=== PATIENT | female | born 1955 | race Caucasian/White ===

== ENCOUNTER 2016-11-06 17:02 | Observation (INO) | payer OTHER ==
[2016-11-06] VITALS (8 sets, daily range): BP systolic 98–131; BP diastolic 46–61; PULSE 54–61; RESP 16–20; TEMP 97.7–98.3; O2SAT 95–100
[~2016-11-06] VITALS: Ht 165.1 cm; Wt 66.0 kg
[~2016-11-06 17:02] MED LIST: ATEN1TAB74 PO; CALC600T34 PO; ESTR1TAB PO; GLUC500C3 PO; LANO0.2510 PO; MAGN30TA PO; PARO40TA PO; PRAV20TA67 PO; TAB-TAB PO
[2016-11-06] MEDS ORDERED: DIGO0.25 PO (17:07)
[2016-11-06] MEDS ORDERED: ATEN1TAB74 PO (17:07)
[2016-11-06] MEDS ORDERED: ESTR0.5T PO (17:07)
[2016-11-06] MEDS ORDERED: PRAV80TA2 PO (17:07)
[2016-11-06] MEDS ORDERED: PAXI30TA7 PO (17:07)
[2016-11-06] MEDS ORDERED: ONDANSETRON HCL 4 MG/2 ML VIAL IV PUSH ONE ×2 (17:15→21:30)
[2016-11-06] MEDS ORDERED: SODIUM CHLOR 0.9% 1000 ML INJ 1,000 ML IV ONE (17:15)
[2016-11-06] MEDS ORDERED: MECLIZINE HCL 25 MG TAB PO ONE (17:15)
--- NOTE | 2016-11-06 17:15 | PD ---
HPI Chief Complaint: Dizziness Time Seen by Provider: 17:06 Travel History International Travel<30 days: No Contact w/Intl Traveler<30days: No Traveled to known affect area: No History of Present Illness HPI This 61-year-old female is complaining of vertigo. She has had some very brief episodes of vertigo which lasted a second or 2 over the last couple weeks. She did have an upper respiratory infection 2 weeks ago. Today around 3:30 she had a sudden onset of vertigo. She had nausea and she vomited. She has not been taking any medication for vertigo. He does not have any fevers. She is not having a headache. There is no diplopia or dysphagia. She has no numbness or tingling. She does have intermittent problems with wax buildup in her ears. She has a history of SVT for which she takes atenolol and digoxin. She uses CPAP at night. She has TMJ. The vertigo is ongoing and is quite severe. It is aggravated by any movement of the head. There is no tinnitus PFSH Past Medical History Anxiety: Yes Heart Rhythm Problems: Yes ("SVT") High Cholesterol: Yes Diminished Hearing: No ?: Not Menopausal: Yes : 1 Para: 1 Miscarriage: 0 : 0 Tubal Ligation: Yes Past Surgical History Hysterectomy: Yes Tonsillectomy: Yes Other Surgery: Yes (RHINOPLASTY) Social History Alcohol Use: Yes ("a glass of wine once a month") Tobacco Use: No Substance Use: No Allergies-Medications (Allergen,Severity, Reaction): Coded Allergies: Sulfa (Sulfonamide Antibiotics) (Unverified Allergy, Severe, Hives, 11/06/16 ) Reported Meds & Prescriptions Reported Meds & Active Scripts Active Reported Estradiol 0.5 Mg Tab 0.5 Mg PO DAILY Pravastatin 80 Mg Tab 80 Mg PO HS Paxil (Paroxetine HCl) 30 Mg Tab 30 Mg PO DAILY Digoxin 0.25 Mg Tab 0.25 Mg PO HS Tenormin (Atenolol) 50 Mg Tab 50 Mg PO HS Review of Systems General / Constitutional: No: Fever, Chills Eyes: No: Diploplia HENT: No: Headaches Cardiovascular: No: Chest Pain or Discomfort, Palpitations Respiratory: No: Cough, Shortness of Breath Gastrointestinal: Positive: Nausea, Vomiting, No: Diarrhea Genitourinary: No: Urgency, Frequency Musculoskeletal: No: Myalgias Skin: No Rash Neurologic: Positive: Dizziness, No: Syncope Endocrine: No: Heat Intolerance Hematologic/Lymphatic: No: Easy Bruising Physical Exam Narrative GENERAL: Well-developed female complaining of vertigo SKIN: Focused skin assessment warm/dry. HEAD: Atraumatic. Normocephalic. EYES: Pupils equal and round. No scleral icterus. No injection or drainage. There is nystagmus on rightward gaze ENT: No nasal bleeding or discharge. Mucous membranes pink and moist. NECK: Trachea midline. No JVD. CARDIOVASCULAR: Regular rate and rhythm. No murmur appreciated. RESPIRATORY: No accessory muscle use. Clear to auscultation. Breath sounds equal bilaterally. GASTROINTESTINAL: Abdomen soft, non-tender, nondistended. Hepatic and splenic margins not palpable. MUSCULOSKELETAL: No obvious deformities. No clubbing. No cyanosis. No edema. NEUROLOGICAL: Awake and alert. No obvious cranial nerve deficits. Motor grossly within normal limits. Normal speech. PSYCHIATRIC: Appropriate mood and affect; insight and judgment normal. Data Data Last Documented VS Vital Signs Date Time Temp Pulse Resp B/P (MAP) Pulse Ox O2 Delivery O2 Flow Rate FiO2 11/06/16 20:35 56 17 104/53 (70) 99 Nasal Cannula 2.00 11/06/16 19:00 98.1 Orders Orders Electrocardiogram (11/06/16 17:06) Complete Blood Count With Diff (11/06/16 17:06) Basic Metabolic Panel (Bmp) (11/06/16 17:06) Digoxin (11/06/16 17:06) Sodium Chlor 0.9% 1000 Ml Inj (Ns 1000 M (11/06/16 17:15) Ondansetron Inj (Zofran Inj) (11/06/16 17:15) Meclizine (Antivert) (11/06/16 17:15) Lorazepam Inj (Ativan Inj) (11/06/16 18:15) Mri Brain W/O Contrast (11/06/16 18:12) Sodium Chlor 0.9% 1000 Ml Inj (Ns 1000 M (11/06/16 18:15) Labs Laboratory Tests Test 11/06/16 17:10 White Blood Count 6.9 TH/MM3 Red Blood Count 4.56 MIL/MM3 Hemoglobin 13.0 GM/DL Hematocrit 38.1 % Mean Corpuscular Volume 83.6 FL Mean Corpuscular Hemoglobin 28.5 PG Mean Corpuscular Hemoglobin Concent 34.2 % Red Cell Distribution Width 12.3 % Platelet Count 161 TH/MM3 Mean Platelet Volume 9.8 FL Neutrophils (%) (Auto) 63.0 % Lymphocytes (%) (Auto) 27.6 % Monocytes (%) (Auto) 6.1 % Eosinophils (%) (Auto) 2.2 % Basophils (%) (Auto) 1.1 % Neutrophils # (Auto) 4.2 TH/MM3 Lymphocytes # (Auto) 1.9 TH/MM3 Monocytes # (Auto) 0.4 TH/MM3 Eosinophils # (Auto) 0.2 TH/MM3 Basophils # (Auto) 0.1 TH/MM3 CBC Comment DIFF FINAL Differential Comment Blood Urea Nitrogen 14 MG/DL Creatinine 0.77 MG/DL Random Glucose 96 MG/DL Calcium Level 8.4 MG/DL Sodium Level 137 MEQ/L Potassium Level 3.5 MEQ/L Chloride Level 103 MEQ/L Carbon Dioxide Level 27.8 MEQ/L Anion Gap 6 MEQ/L Estimat Glomerular Filtration Rate 76 ML/MIN Digoxin Level 0.7 NG/ML [facility] Medical Decision Making Medical Screen Exam Complete: Yes Emergency Medical Condition: Yes Medical Record Reviewed: Yes Differential Diagnosis Differential includes BPPV, labyrinthitis, Narrative Course Patient is having prolonged vertigo which would not be consistent with BPPV more consistent with labyrinthitis. Patient was given IV fluids, Zofran and Antivert. There is no improvement in her vertigo. MRI was ordered and has been read as negative. Impression is acute peripheral vertigo probable labyrinthitis Diagnosis Primary Impression: Labyrinthitis Qualified Codes: H83.09 - Labyrinthitis, unspecified ear Scripts Meclizine (Meclizine) 25 Mg Tab 25 MG PO TID Y for VERTIGO, #20 TAB 0 Refills Prov: Tutu Owens MD 11/06/16 Disposition: 01 DISCHARGE HOME Condition: Stable Tutu Owens MD Nov 06, 2016 17:15
[2016-11-06 17:29] LABS: AUTOMATED NEUTROPHIL # 4.2 TH/MM3 (1.8-7.7); BASOPHIL # 0.1 TH/MM3 (0-0.2); BASOPHIL % 1.1 % (0.0-2.0); EOSINOPHIL # 0.2 TH/MM3 (0-0.4); EOSINOPHIL % 2.2 % (0.0-4.0); HEMATOCRIT 38.1 % (35.0-46.0); HEMO FLAGS DIFF FINAL; LYMPH % 27.6 % (9.0-44.0); LYMPHOCYTE # 1.9 TH/MM3 (1.0-4.8); MEAN CELL VOLUME 83.6 FL (80.0-100.0); MEAN CORPUSCULAR HEMOGLOBIN 28.5 PG (27.0-34.0); MEAN CORPUSCULAR HGB CONC 34.2 % (32.0-36.0); MONO % 6.1 % (0.0-8.0); PLATELET COUNT 161 TH/MM3 (150-450); RED BLOOD COUNT 4.56 MIL/MM3 (4.00-5.30); RED CELL DISTRIBUTION WIDTH 12.3 % (11.6-17.2); WHITE BLOOD COUNT 6.9 TH/MM3 (4.0-11.0)
[2016-11-06 17:39] LABS: POTASSIUM 3.5 MEQ/L (3.5-5.1)
[2016-11-06 17:42] LABS: BICARBONATE 27.8 MEQ/L (21.0-32.0)
[2016-11-06] MEDS ORDERED: LORazepam 2 MG/ML VIAL IV PUSH ONE ×2 (18:15→21:45)
[2016-11-06] MEDS: SODIUM CHLOR 0.9% 1000 ML INJ 1,000 ML IV SCH ×4 (18:17→23:14)
[2016-11-06 18:24] LABS: DIGOXIN 0.7 NG/ML (0.8-2.0)
--- NOTE | 2016-11-06 20:47 | RADRPT ---
EXAM DATE/TIME: 11/06/2016 20:12 [place] COMPARISON: No previous studies available for comparison. INDICATIONS : Dizziness. MEDICAL HISTORY : None. SURGICAL HISTORY : Tonsillectomy. Tubal ligation. ENCOUNTER: Initial ACUITY: 1 day PAIN SCORE: 0/10 LOCATION: cranial TECHNIQUE: Multiplanar, multisequence MRI of the brain was performed without contrast. FINDINGS: CEREBRUM: The ventricles are normal for age. No evidence of midline shift, mass lesion, hemorrhage or acute in farction. No extraaxial fluid collections are seen. The pituitary gland and suprasellar cistern are normal in configuration. WHITE MATTER: No significant signal abnormalities are seen in the white matter. POSTERIOR FOSSA: The cerebellum and brainstem are intact. The 4th ventricle is midline. The cerebellopontine angle is unremarkable. The cerebellar tonsils are normal in position. DIFFUSION IMAGING: No focal areas of restricted diffusion are seen. No evidence of acute infarction. EXTRACRANIAL: The visualized portions of the orbits and paranasal sinuses are unremarkable. CONCLUSION: Negative noncontrast MRI. Jose Donovan MD on November 06, 2016 at 20:44 Board Certified Radiologist. This report was verified electronically.
[2016-11-06] MEDS ORDERED: MECL-62 PO (21:01)
[2016-11-06] MEDS ORDERED: ZOFR4TAB PO (21:19)
[2016-11-06] MEDS ORDERED: ONDANSETRON ODT 4 MG TAB PO ONE (21:30)
[2016-11-06] MEDS ORDERED: PROCHLORPERAZINE INJ 10 MG/2 ML VIAL IV PUSH ONE (21:45)
[2016-11-06] MEDS ORDERED: SODIUM CHLORIDE 0.9% FLUSH 10 ML FLUSH IV FLUSH PRN (22:45)
[2016-11-06] MEDS ORDERED: MAGNESIUM HYDROXIDE SUSP 30 ML CUP PO PRN (22:45)
[2016-11-06] MEDS ORDERED: ACETAMINOPHEN 325 MG TAB PO PRN (22:45)
[2016-11-06] MEDS ORDERED: NALOXONE HCL 0.4 MG/ML AMP IV PRN (22:45)
[2016-11-06] MEDS ORDERED: LACTULOSE SYRUP 20 GM/30 ML CUP PO PRN (22:45)
[2016-11-06] MEDS ORDERED: LORazepam 2 MG/ML VIAL IV PUSH PRN (22:45)
[2016-11-06] MEDS ORDERED: BISACODYL 10 MG SUPP RECTAL PRN (22:45)
[2016-11-06] MEDS ORDERED: MECLIZINE HCL 25 MG TAB PO PRN (22:45)
[2016-11-06] MEDS ORDERED: ONDANSETRON HCL 4 MG/2 ML VIAL IVP PRN (22:45)
[2016-11-06] MEDS ORDERED: PILL SPLITTER OTHER PRN (22:45)
[2016-11-06] MEDS ORDERED: PROMETHAZINE INJ 25 MG/ML VIAL IM PRN (22:45)
[2016-11-06] MEDS ORDERED: SENNOSIDES 8.6 MG TAB PO PRN (22:45)
--- NOTE | 2016-11-06 23:01 | HHI.HP ---
HPI Service [facility] Hospitalists Primary Care Physician Ramu Buckner MD Admission Diagnosis INTRACTABLE VOMITING, INTRACTABLE VERTIGO Chief Complaint: intractable vomit and vertigo Travel History International Travel<30 Days: No Contact w/Intl Traveler <30 Da: No Traveled to Known Affected Are: No History of Present Illness This 61-year-old female is complaining of vertigo. She has had some very brief episodes of vertigo which lasted a second or 2 over the last couple weeks. She did have an upper respiratory infection 2 weeks ago. Today around 3:30 she had a sudden onset of vertigo. She had nausea and she vomited. She has not been taking any medication for vertigo. He does not have any fevers. She is not having a headache. There is no diplopia or dysphagia. She has no numbness or tingling. She does have intermittent problems with wax buildup in her ears. She has a history of SVT for which she takes atenolol and digoxin. She uses CPAP at night. She has TMJ. The vertigo is ongoing and is quite severe. It is aggravated by any movement of the head. There is no tinnitus We tried to discharge on po meds but continued to have severe nausea and vomit will admit IV fluid and zofran meclizine and ativan prn. Review of Systems Constitutional: COMPLAINS OF: Dizziness Gastrointestinal: COMPLAINS OF: Nausea, Vomiting Past Family Social History Past Medical History SVT ,hyperlipidemia ,depression,anxiety Past Surgical History hysterectomy,tonsil rhinoplasty Reported Medications Estradiol 0.5 Mg Tab 0.5 Mg PO DAILY Pravastatin 80 Mg Tab 80 Mg PO HS Paxil (Paroxetine HCl) 30 Mg Tab 30 Mg PO DAILY Digoxin 0.25 Mg Tab 0.25 Mg PO HS Tenormin (Atenolol) 50 Mg Tab 50 Mg PO HS Allergies: Coded Allergies: Sulfa (Sulfonamide Antibiotics) (Unverified Allergy, Severe, Hives, 11/06/16 ) Social History NS,ND Physical Exam Vital Signs Vital Signs Date Time Temp Pulse Resp B/P (MAP) Pulse Ox O2 Delivery O2 Flow Rate FiO2 11/06/16 22:35 60 16 105/59 (74) Nasal Cannula 1.00 96 11/06/16 21:57 97.7 61 20 117/58 (77) 95 Room Air 11/06/16 21:24 63 18 131/61 (84) 97 11/06/16 20:35 56 17 104/53 (70) 99 Nasal Cannula 2.00 11/06/16 19:50 60 17 104/61 (75) 99 Nasal Cannula 2.00 11/06/16 19:00 98.1 57 18 98/46 (63) 100 Room Air 11/06/16 19:00 98 Nasal Cannula 2.00 11/06/16 18:09 60 16 98/59 (72) 99 Room Air 11/06/16 17:07 98.3 54 18 104/54 (71) 97 11/06/16 17:02 54 97 Room Air Physical Exam GENERAL: This is a well-nourished, well-developed patient, in no apparent distress. SKIN: No rashes, ecchymoses or lesions. Cool and dry. HEAD: Atraumatic. Normocephalic. No temporal or scalp tenderness. EYES: Pupils equal round and reactive. Extraocular motions intact. No scleral icterus. No injection or drainage. ENT: Nose without bleeding, purulent drainage or septal hematoma. Throat without erythema, tonsillar hypertrophy or exudate. Uvula midline. Airway patent.No cerumen accumulation NECK: Trachea midline. No JVD or lymphadenopathy. Supple, nontender, no meningeal signs. CARDIOVASCULAR: Regular rate and rhythm without murmurs, gallops, or rubs. RESPIRATORY: Clear to auscultation. Breath sounds equal bilaterally. No wheezes , rales, or rhonchi. GASTROINTESTINAL: Abdomen soft, non-tender, nondistended. No hepato-splenomegaly , or palpable masses. No guarding. MUSCULOSKELETAL: Extremities without clubbing, cyanosis, or edema. No joint tenderness, effusion, or edema noted. No calf tenderness. Negative Homans sign bilaterally. NEUROLOGICAL: Awake and alert. Cranial nerves II through XII intact. Motor and sensory grossly within normal limits. Five out of 5 muscle strength in all muscle groups. Normal speech. severe dizziness on movement or attempt to stand up Laboratory Laboratory Tests Test 11/06/16 17:10 White Blood Count 6.9 Red Blood Count 4.56 Hemoglobin 13.0 Hematocrit 38.1 Mean Corpuscular Volume 83.6 Mean Corpuscular Hemoglobin 28.5 Mean Corpuscular Hemoglobin Concent 34.2 Red Cell Distribution Width 12.3 Platelet Count 161 Mean Platelet Volume 9.8 Neutrophils (%) (Auto) 63.0 Lymphocytes (%) (Auto) 27.6 Monocytes (%) (Auto) 6.1 Eosinophils (%) (Auto) 2.2 Basophils (%) (Auto) 1.1 Neutrophils # (Auto) 4.2 Lymphocytes # (Auto) 1.9 Monocytes # (Auto) 0.4 Eosinophils # (Auto) 0.2 Basophils # (Auto) 0.1 CBC Comment DIFF FINAL Differential Comment Blood Urea Nitrogen 14 Creatinine 0.77 Random Glucose 96 Calcium Level 8.4 Sodium Level 137 Potassium Level 3.5 Chloride Level 103 Carbon Dioxide Level 27.8 Anion Gap 6 Estimat Glomerular Filtration Rate 76 Digoxin Level 0.7 Result Diagram: 11/06/16 1710 11/06/16 171 Imaging Last 24 hours Impressions Brain MRI 11/06/16 1812 Signed Impressions: Service Date/Time: Sunday, November 06, 2016 20:12 - CONCLUSION: Negative noncontrast MRI. Jose Donovan MD Course in er received diana compazine ,ativan with very mild improvement over 4 hours Caprini VTE Risk Assessment Caprini VTE Risk Assessment: No/Low Risk (score <= 1) Caprini Risk Assessment Model Point Value = 1 Point Value = 2 Point Value = 3 Point Value = 5 Age 41-60 Minor surgery BMI > 25 kg/m2 Swollen legs Varicose veins or History of unexplained or recurrent spontaneous Oral contraceptives or hormone replacement Sepsis (< 1 month) Serious lung disease, including pneumonia (< 1 month) Abnormal pulmonary function Acute myocardial infarction Congestive heart failure (< 1 month) History of inflammatory bowel disease Medical patient at bed rest Age 61-74 Arthroscopic surgery Major open surgery (> 45 min) Laparoscopic surgery (> 45 min) Malignancy Confined to bed (> 72 hours) Immobilizing plaster cast Central venous access Age >= 75 History of VTE Family history of VTE Factor V Leiden Prothrombin [id number] Lupus anticoagulant Anticardiolipin antibodies Elevated serum homocysteine Heparin-induced thrombocytopenia Other congenital or acquired thrombophilia Stroke (< 1 month) Elective arthroplasty Hip, pelvis, or leg fracture Acute spinal cord injury (< 1 month) Prophylaxis Regimen Total Risk Factor Score Risk Level Prophylaxis Regimen 0-1 Low Early ambulation 2 Moderate Order ONE of the following: *Sequential Compression Device (SCD) *Heparin 5000 units SQ BID 3-4 Higher Order ONE of the following medications: *Heparin 5000 units SQ TID *Enoxaparin/Lovenox 40 mg SQ daily (WT < 150 kg, CrCl > 30 mL/min) *Enoxaparin/Lovenox 30 mg SQ daily (WT < 150 kg, CrCl > 10-29 mL/min) *Enoxaparin/Lovenox 30 mg SQ BID (WT < 150 kg, CrCl > 30 mL/min) AND/OR *Sequential Compression Device (SCD) 5 or more Highest Order ONE of the following medications: *Heparin 5000 units SQ TID (Preferred with Epidurals) *Enoxaparin/Lovenox 40 mg SQ daily (WT < 150 kg, CrCl > 30 mL/min) *Enoxaparin/Lovenox 30 mg SQ daily (WT < 150 kg, CrCl > 10-29 mL/min) *Enoxaparin/Lovenox 30 mg SQ BID (WT < 150 kg, CrCl > 30 mL/min) AND *Sequential Compression Device (SCD) Assessment and Plan Problem List: (1) Vertigo ICD Codes: R42 - Dizziness and giddiness Status: Acute Plan: related to labyrinthitis ativan ,zofran phenergan IV fluids (2) Intractable nausea and vomiting ICD Codes: R11.2 - Nausea with vomiting, unspecified Plan: as above IV fluids reaccess in am (3) Labyrinthitis ICD Codes: H83.09 - Labyrinthitis, unspecified ear Status: Acute Plan: no obvious findings MRI brain negative lab work negative Assessment and Plan as above fluids IV medication clear liquids Code Status full Discussed Condition With patient Problem Qualifiers (1) Labyrinthitis: Qualified Codes: H83.09 - Labyrinthitis, unspecified ear Michael Hester MD Nov 06, 2016 23:00
[2016-11-07] MEDS: SODIUM CHLOR 0.9% 1000 ML INJ 1,000 ML IV SCH ×3 (02:03→08:38)
[2016-11-07 08:00] VITALS: BP 95/55; PULSE 57; RESP 18; TEMP 97.5; O2SAT 96
[2016-11-07] MEDS ORDERED: PARoxetine HCL 20 MG TAB PO SCH (09:00)
[2016-11-07] MEDS ORDERED: SODIUM CHLORIDE 0.9% FLUSH 10 ML FLUSH IV FLUSH SCH (09:00)
[2016-11-07] MEDS ORDERED: DOCUSATE SODIUM 50 MG/SENNA 8.6 MG TAB PO SCH (09:00)
[2016-11-07] MEDS ORDERED: ESTRADIOL 1 MG TAB PO SCH (09:00)
--- NOTE | 2016-11-07 11:06 | HHI.DS ---
Discharge Summary Admission Date Nov 06, 2016 at 21:55 Admitting Diagnosis INTRACTABLE VOMITING, INTRACTABLE VERTIGO (1) Vertigo Diagnosis: Principal ICD Codes: R42 - Dizziness and giddiness Status: Acute (2) Intractable nausea and vomiting Diagnosis: Principal ICD Codes: R11.2 - Nausea with vomiting, unspecified (3) Labyrinthitis Diagnosis: Principal ICD Codes: H83.09 - Labyrinthitis, unspecified ear Status: Acute Brief History This 61-year-old female is complaining of vertigo. She has had some very brief episodes of vertigo which lasted a second or 2 over the last couple weeks. She did have an upper respiratory infection 2 weeks ago. Today around 3:30 she had a sudden onset of vertigo. She had nausea and she vomited. She has not been taking any medication for vertigo. He does not have any fevers. She is not having a headache. There is no diplopia or dysphagia. She has no numbness or tingling. She does have intermittent problems with wax buildup in her ears. She has a history of SVT for which she takes atenolol and digoxin. She uses CPAP at night. She has TMJ. The vertigo is ongoing and is quite severe. It is aggravated by any movement of the head. There is no tinnitus We tried to discharge on po meds but continued to have severe nausea and vomit will admit IV fluid and zofran meclizine and ativan prn. CBC/BMP: 11/06/16 1710 11/06/16 1710 Significant Findings Laboratory Tests Test 11/06/16 17:10 Calcium Level 8.4 MG/DL (8.5-10.1) Estimat Glomerular Filtration Rate 76 ML/MIN (>89) Digoxin Level 0.7 NG/ML (0.8-2.0) PE at Discharge GENERAL: SKIN: Warm and dry. HEAD: Atraumatic. Normocephalic. EYES: Pupils equal and round. No scleral icterus. No injection or drainage. ENT: No nasal bleeding or discharge. Mucous membranes pink and moist. NECK: Trachea midline. No JVD. CARDIOVASCULAR: Regular rate and rhythm. RESPIRATORY: No accessory muscle use. Clear to auscultation. Breath sounds equal bilaterally. GASTROINTESTINAL: Abdomen soft, non-tender, nondistended. Hepatic and splenic margins not palpable. MUSCULOSKELETAL: Extremities without clubbing, cyanosis, or edema. No obvious deformities. NEUROLOGICAL: Awake and alert. No obvious cranial nerve deficits. Motor grossly within normal limits. Five out of 5 muscle strength in the arms and legs. Normal speech. PSYCHIATRIC: Appropriate mood and affect; insight and judgment normal. Hospital Course Patient admitted for vertigo,intractable nausea and vomit given IV fluids and zofran meclizine prn all symptoms have resolved feeling well and will be discharged today in stable condition. Patient had normal MRI brain and lab work. Pt Condition on Discharge: Good Discharge Disposition: Discharge Home Discharge Instructions DIET: Follow Instructions for: Heart Healthy Diet Activities you can perform: Regular-No Restrictions Continued Medications: Digoxin (Digoxin) 0.25 Mg Tab 0.25 MG PO HS for Regulate Heart Beat, #30 TAB 0 Refills Estradiol (Estradiol) 0.5 Mg Tab 0.5 MG PO DAILY for Estrogen Supplements, #30 TAB 0 Refills Meclizine (Meclizine) 25 Mg Tab 25 MG PO TID PRN for VERTIGO, #20 TAB 0 Refills Paroxetine (Paxil) 30 Mg Tab 30 MG PO DAILY, #30 TAB 0 Refills Pravastatin (Pravastatin) 80 Mg Tab 80 MG PO HS for Cholesterol Management, #30 TAB 0 Refills Additional Information patient also takes atenol 50 which i held as runs low normal blood pressure and can restart at 25mg a day and follow up with PCP. Michael Hester MD Nov 07, 2016 11:06
--- NOTE | 2016-11-07 20:13 | EKG ---
Date Performed: 11/06/2016 Time Performed: 17:14:36 PTAGE: 61 years EKG: SINUS BRADYCARDIA BORDERLINE ECG PREVIOUS TRACING : 05/11/2014 22.38 DOCTOR: Julia Fernandez Interpretating Date/Time 11/07/2016 20:08:46
[2016-11-07] MEDS ORDERED: DIGOXIN 0.25 MG TAB PO SCH (21:00)
[2016-11-08] MEDS ORDERED: PNEUMOCOCCAL POLYVALENT INJ 25 MCG/0.5 ML SYR IM ONE (10:00)
[2016-11-08] MEDS ORDERED: INFLUENZA VIRUS VACCINE (QUADRIVALENT) 0.5 ML SYR IM ONE (10:00)
== END 2016-11-07 12:31 | disposition home or self-care (01) ==
LOC: PHED 17:02 → PHEDA 21:55 → PH3B 23:37
PROVIDERS: ADMIT Internal Medicine; ATTEND Internal Medicine
DX: R42 Dizziness and giddiness (principal); H83.09 Labyrinthitis, unspecified ear; R11.2 Nausea with vomiting, unspecified; I47.1 Supraventricular tachycardia; R94.31 Abnormal electrocardiogram [ECG] [EKG]
CPT/HCPCS: 70551; 80048; 80162; 85025; 93005; 96361; 96374; 96375; 96376; 99285; G0378; J0780; J2060; J2405; J7030

== ENCOUNTER 2017-09-21 05:47 | Observation (INO) ==
[2017-09-21] MEDS ORDERED: Sod Chloride 0.9% Inj 1,000 ML IV.SIG ONE ×2 (05:54→05:56)
--- NOTE | 2017-09-21 06:03 | ED ---
HPI General Chief Complaint: Syncope Stated Complaint: syncope/evac Time Seen by Provider: 09/21/17 05:53 Source: patient Mode of arrival: EMS Limitations: no limitations History of Present Illness HPI narrative: Patient is a 62 year old female with history of SVT as well as chronic back pain, presents to the ER with c/o of syncopal episode. Patient reports that she began to have really bad back pain last night. Reports pain to her left lower back - pain does radiate down her leg. Reports that she was having a hard time getting comfortable last night. Reports that she woke up this morning and was getting ready when she began to feel light headed and dizzy and nauseous. She sat down and "passed out" for a few minutes. Denies any trauma to head/neck. Reports that she felt sick after this event. EMS arrived on scene and reported that patient was diaphoretic and pale appearing. An iv could not be established in the field so no meds were given. Patient at this time denies headache/dizzyness. Denies chest pain, reports pains to her left low back. Denies any fall or trauma. Related Data Home Medications Medication Instructions Recorded Confirmed atenolol 25 mg PO DAILY 09/21/17 09/21/17 estradiol [Estrace] 1 mg PO DAILY 09/21/17 09/21/17 paroxetine HCl [Paxil] 40 mg PO DAILY 09/21/17 09/21/17 pravastatin 40 mg PO DAILY 09/21/17 09/21/17 Allergies Allergy/AdvReac Type Severity Reaction Status Date / Time Sulfa (Sulfonamide Allergy Severe Hives Unverified 11/06/16 17:04 Antibiotics) Review of Systems Except as stated in HPI: all other systems reviewed are negative [facility] Medical History Medical History H/O: hysterectomy (Acute) SVT (supraventricular tachycardia) (Acute) Chronic back pain (Acute) Surgical History Surgical History H/O rhinoplasty (Acute) Social History Social History Substance History: No History of Abuse Second Hand Smoke Exposure: No Smoking Status: Never smoker How Often Do You Have a Drink Containing Alcohol: Never Recent Travel in [facility] within the Last 8 Weeks: No Recent Out of Country Travel within the Last 8 Weeks: No Immunization History Tetanus Immunization: >5 Years Hx Influenza Vaccine This Season: No Exam Narrative Exam Narrative: GENERAL: moderate distress SKIN: Focused skin assessment warm/dry. HEAD: Atraumatic. Normocephalic. EYES: Pupils equal and round. No scleral icterus. No injection or drainage. ENT: No nasal bleeding or discharge. Mucous membranes pink and moist. NECK: Trachea midline. No JVD. CARDIOVASCULAR: Regular rate and rhythm. No murmur appreciated. RESPIRATORY: No accessory muscle use. Clear to auscultation. Breath sounds equal bilaterally. GASTROINTESTINAL: Abdomen soft, non-tender, nondistended. Hepatic and splenic margins not palpable. MUSCULOSKELETAL: No obvious deformities. No clubbing. No cyanosis. No edema. Patient with pain to lower paraspinal lumbar spine NEUROLOGICAL: Awake and alert. No obvious cranial nerve deficits. Motor grossly within normal limits. Normal speech. PSYCHIATRIC: Appropriate mood and affect; insight and judgment normal. Course Initial Documented Vital Signs Temperature 97.5 F L 09/21/17 05:49 Pulse Rate 65 09/21/17 05:49 Respiratory Rate 16 09/21/17 05:49 Blood Pressure 96/48 L 09/21/17 05:49 Pulse Oximetry 98 09/21/17 05:49 Last Documented Vital Signs Temperature 97.5 F L 09/21/17 05:49 Pulse Rate 61 09/21/17 07:06 Respiratory Rate 18 09/21/17 07:06 Blood Pressure 105/54 L 09/21/17 07:06 Pulse Oximetry 100 09/21/17 07:06 Sign Out Sign Out Data: Patient Sign Out occurred on 09/21/17 at 07:17. Patient's care was discussed, and care was transferred from Sakina Rey to Mani Contreras MD. Sign Out Comment: patient signed out to oncoming physician at change of shift, patient pending CTA to rule out dissection as well as admission to hospital Last updated by Sakina Rey at 09/21/17 07:16 Post-Handoff Eval: Patient with some continued low borderline blood pressures. She is on atenolol for SVT. Unclear if it is related. CTA is negative for dissection. At this point recommend observation for syncope in the setting of hypotension, suspect vasovagal syncope from back pain. Etiology of back pain exacerbation is unclear. Spoke with Dr. Hester, will admit patient. Medical Decision Making MDM Narrative Medical decision making narrative: During the course of the patients emergency department visit, the patients history, examination, and differential diagnosis were reviewed with the patient. The patient was placed on a court recording monitor with oximetry and frequent blood pressure monitoring. The patient had an IV access obtained and blood work sent for analysis. The patient was initially provided 2 liters of IVF as she is hypotensive with a bp of 96/48. Her blood pressure in her left arm was similar BP now 102/64 after 1 liter of IVF, chest xray does not show a widened mediastinum CTA ordered to evaluate for possible dissection Lab Data Lab results reviewed: Yes I reviewed the patient's lab results. Result diagrams: 09/21/17 05:55 09/21/17 05:55 Lab Results 09/21/17 09/21/17 09/21/17 Range/Units 05:55 05:55 05:55 CBC w Diff Auto diff final WBC 8.8 (4.0-11.0) th/mm3 RBC 4.32 (4.00-5.30) mil/mm3 Hgb 12.2 (11.6-15.3) gm/dL Hct 36.9 (35.0-46.0) % MCV 85.5 (80.0-100.0) fL MCH 28.4 (27.0-34.0) pg MCHC 33.2 (32.0-36.0) % RDW 12.2 (11.6-17.2) % Plt Count 217 (150-450) th/mm3 MPV 9.0 (7.0-11.0) fL Neut % (Auto) 68.2 (16.0-70.0) % Lymph % (Auto) 22.7 (9.0-44.0) % [place] % (Auto) 7.2 (0.0-8.0) % Eos % (Auto) 1.4 (0.0-4.0) % Baso % (Auto) 0.5 (0.0-2.0) % Neut # (Auto) 6.1 (1.8-7.7) th/mm3 Lymph # (Auto) 2.0 (1.0-4.8) th/mm3 [place] # (Auto) 0.6 (0.0-0.9) th/mm3 Eos # (Auto) 0.1 (0.0-0.4) th/mm3 Baso # (Auto) 0.0 (0.0-0.2) th/mm3 WBC Differential . Differential Comment . PT 10.2 (9.8-11.6) sec INR 1.0 Ratio APTT 25.5 (24.3-30.1) sec D-Dimer Quant (PE/DVT) 0.57 H (0.00-0.50) mg/L FEU Sodium 139 (136-145) meq/L Potassium 3.7 (3.5-5.1) meq/L Chloride 104 (98-107) meq/L Carbon Dioxide 28.0 (21.0-32.0) meq/L Anion Gap 7 (5-15) meq/L BUN 11 (7-18) mg/dL Creatinine 0.77 (0.50-1.00) mg/dL Estimated GFR 76 L (>89) mL/min Random Glucose 114 H (74-106) mg/dL Calcium 9.0 (8.5-10.1) mg/dL Magnesium 2.0 (1.5-2.5) mg/dL Total Bilirubin 0.4 (0.2-1.0) mg/dL AST 17 (15-37) U/L ALT 32 (10-53) U/L Alkaline Phosphatase 84 (45-117) U/L Troponin I Less than 0.02 L (0.02-0.05) ng/mL B-Natriuretic Peptide (0-100) pg/mL Total Protein 6.6 (6.4-8.2) g/dL Albumin 3.6 (3.4-5.0) g/dL 09/21/17 Range/Units 05:55 CBC w Diff WBC (4.0-11.0) th/mm3 RBC (4.00-5.30) mil/mm3 Hgb (11.6-15.3) gm/dL Hct (35.0-46.0) % MCV (80.0-100.0) fL MCH (27.0-34.0) pg MCHC (32.0-36.0) % RDW (11.6-17.2) % Plt Count (150-450) th/mm3 MPV (7.0-11.0) fL Neut % (Auto) (16.0-70.0) % Lymph % (Auto) (9.0-44.0) % [place] % (Auto) (0.0-8.0) % Eos % (Auto) (0.0-4.0) % Baso % (Auto) (0.0-2.0) % Neut # (Auto) (1.8-7.7) th/mm3 Lymph # (Auto) (1.0-4.8) th/mm3 [place] # (Auto) (0.0-0.9) th/mm3 Eos # (Auto) (0.0-0.4) th/mm3 Baso # (Auto) (0.0-0.2) th/mm3 WBC Differential Differential Comment PT (9.8-11.6) sec INR Ratio APTT (24.3-30.1) sec D-Dimer Quant (PE/DVT) (0.00-0.50) mg/L FEU Sodium (136-145) meq/L Potassium (3.5-5.1) meq/L Chloride (98-107) meq/L Carbon Dioxide (21.0-32.0) meq/L Anion Gap (5-15) meq/L BUN (7-18) mg/dL Creatinine (0.50-1.00) mg/dL Estimated GFR (>89) mL/min Random Glucose (74-106) mg/dL Calcium (8.5-10.1) mg/dL Magnesium (1.5-2.5) mg/dL Total Bilirubin (0.2-1.0) mg/dL AST (15-37) U/L ALT (10-53) U/L Alkaline Phosphatase (45-117) U/L Troponin I (0.02-0.05) ng/mL B-Natriuretic Peptide 33 (0-100) pg/mL Total Protein (6.4-8.2) g/dL Albumin (3.4-5.0) g/dL Imaging Data Radiologist's impression: Thoracic Aorta CT 09/21/17 05:56 CONCLUSION: 1. No evidence of aortic aneurysm or dissection. 2. Bilateral thyroid nodules measuring up to 1.6 cm. Recommend further evaluation with thyroid ultrasound if this has not been previously performed. 3. Left hepatic lobe cavernous hemangioma. Additional smaller lesions with features suggestive of hemangiomas. Chest X-Ray 09/21/17 05:57 CONCLUSION: No active disease. ECG Data EKG Prior to Arrival: No Attestation: I personally reviewed and interpreted this ECG as follows: Interpretation: EKG at 0549: Sinus bradycardia at 57bpm, qt/qtc: 402/395, no acute st or t wave changes Discharge Plan Discharge Disposition Patient Disposition: 30 Still Patient Physicians Team ED Provider: Mani Contreras Primary Care Provider: Ramu Buckner Rxs /Orders / Referrals /Forms Prescriptions: No Action pravastatin 40 mg Tablet 40 mg PO DAILY RF: 0 atenolol 25 mg Tablet 25 mg PO DAILY RF: 0 estradiol [Estrace] 1 mg Tablet 1 mg PO DAILY RF: 0 paroxetine HCl [Paxil] 40 mg Tablet 40 mg PO DAILY RF: 0 Status ED Status: With Doctor
[2017-09-21 06:17] LABS: Baso % (Auto) 0.5 % (0.0-2.0); Eos # (Auto) 0.1 th/mm3 (0.0-0.4); Eos % (Auto) 1.4 % (0.0-4.0); Hematocrit 36.9 % (35.0-46.0); Hemoglobin 12.2 gm/dL (11.6-15.3); Lymph % (Auto) 22.7 % (9.0-44.0); Mean Corpuscular HGB Conc 33.2 % (32.0-36.0); Mean Corpuscular Hemoglobin 28.4 pg (27.0-34.0); Mean Corpuscular Volume 85.5 fL (80.0-100.0); Mono # (Auto) 0.6 th/mm3 (0.0-0.9); Mono % (Auto) 7.2 % (0.0-8.0); Neut # (Auto) 6.1 th/mm3 (1.8-7.7); Neut % (Auto) 68.2 % (16.0-70.0); Platelet Count 217 th/mm3 (150-450); Red Blood Count 4.32 mil/mm3 (4.00-5.30); Red Cell Distribution Width 12.2 % (11.6-17.2); White Blood Count 8.8 th/mm3 (4.0-11.0)
[2017-09-21 06:22] LABS: Chloride 104 meq/L (98-107); Potassium 3.7 meq/L (3.5-5.1); Sodium 139 meq/L (136-145)
[2017-09-21 06:25] LABS: Albumin 3.6 g/dL (3.4-5.0); Anion Gap 7 meq/L (5-15); Blood Urea Nitrogen 11 mg/dL (7-18); Glucose,Random 114 mg/dL (74-106)
[2017-09-21 06:27] LABS: Alanine Aminotransferase 32 U/L (10-53)
[2017-09-21 06:28] LABS: Aspartate Aminotransferase 17 U/L (15-37); Glomerular Filtration Rate 76 mL/min (>89)
[2017-09-21 06:29] LABS: Total Protein 6.6 g/dL (6.4-8.2)
[2017-09-21 06:30] LABS: Alkaline Phosphatase 84 U/L (45-117)
[2017-09-21 06:33] LABS: Activated Partial Thrombo Time 25.5 sec (24.3-30.1); Prothrombin Time 10.2 sec (9.8-11.6)
[2017-09-21 06:36] LABS: D-Dimer 0.57 mg/L FEU (0.00-0.50)
--- NOTE | 2017-09-21 06:48 | XR ---
EXAM DATE: 09/21/2017 6:17 AM EDT AGE/SEX: 62 years / Female INDICATIONS: . Syncopal episode. CLINICAL DATA: This is the patient's initial encounter. Patient reports that signs and symptoms have been present for 1 day and indicates a pain score of 0/10. MEDICAL/SURGICAL HISTORY: None. None. COMPARISON: [facility], CHEST SINGLE AP, 05/11/2014. . FINDINGS: A single AP view of the chest demonstrates the lungs to be symmetrically aerated without evidence of mass, infiltrate or effusion. The cardiomediastinal contours are unremarkable. Osseous structures a re intact. CONCLUSION: No active disease. Electronically signed by: Alex Dominguez MD 09/21/2017 6:46 AM EDT
[2017-09-21] MEDS ORDERED: Morphine Inj 4 MG/ML Vial IV.PUSH ONE (07:23)
--- NOTE | 2017-09-21 07:37 | CT ---
EXAM DATE: 09/21/2017 7:11 AM EDT AGE/SEX: 62 years / Female INDICATIONS: Evaluate for dissection. Lower back pain. History of supraventricular tachycardia. CLINICAL DATA: This is the patient's initial encounter. Patient reports that signs and symptoms have been present for 2 days and indicates a pain score of 8/10. MEDICAL/SURGICAL HISTORY: Cardiovascular disease. Hysterectomy. RADIATION DOSE: 15.98 CTDI (mGy) COMPARISON: [facility], MR ABDOMEN W/ AND W/O CONTRAST, 05/12/2009. POI, CT ABDOMEN AND PELVIS W AND W/O CONTRAST, 03/30/2009. . TECHNIQUE: Volumetric scanning was performed using a multi-row detector CT scanner during bolus infu bri of 100 ml Omnipaque 350 (iohexol) nonionic water-soluble contrast as a single exam dose. The d baron was post processed with a variety of visualization algorithms including full volume maximum inten sity projection, multi-planar sliding thin slab reformation, curved planar reformation, and surface r endering techniques. Using automated exposure control and adjustment of the mA and/or kV according t o patient size, radiation dose was kept as low as reasonably achievable to obtain optimal diagnostic quality images. DICOM format image data is available electronically for review and comparison. FINDINGS: Lungs: There is no consolidation or pneumothorax. No concerning pulmonary nodule is visualized. Sta ble 5 mm right lower lobe nodule and 3 mm right middle lobe micronodule. No pleural fluid is present. Mediastinum: No abnormally enlarged lymph nodes by CT criteria. No axillary or hilar abnormalities a re identified. Bilateral thyroid nodules measuring up to 1.6 cm on the right. No large, central pulmo nary embolism. Abdomen: Approximately 4.5 cm lobulated lesion in the left hepatic lobe with nodular peripheral enha ncement, previously characterized as a cavernous hemangioma. Several additional small lesions with fe atures suggestive of hemangiomas are seen in both lobes of the liver. The gallbladder and pancreas de monstrate no abnormality. The adrenal glands are normal. The kidneys demonstrate no evidence of solid renal mass or hydronephrosis. No free fluid or abdominal masses are identified. No para-aortic adeno logan is seen. No bowel obstruction. Normal appendix. Pelvis: No evidence of free fluid or pelvic mass. No abnormally enlarged inguinal or retroperitoneal lymph nodes are present. The bladder is unremarkable. Thoracic Aorta: The thoracic aortic root is normal with normal branching of the great vessels. Ther e is no evidence of aneurysm or dissection. Abdominal Aorta: The aorta is normal in caliber without aneurysm or dissection. The renal arteries are patent bilaterally. The proximal celiac and superior mesenteric arteries are patent and normal i n diameter. Pelvic Vessels: The internal iliac and external iliac vessels are patent without aneurysm or stenosi s. CONCLUSION: 1. No evidence of aortic aneurysm or dissection. 2. Bilateral thyroid nodules measuring up to 1.6 cm. Recommend further evaluation with thyroid ultra sound if this has not been previously performed. 3. Left hepatic lobe cavernous hemangioma. Additional smaller lesions with features suggestive of he mangiomas. Electronically signed by: Trudi Coe MD 09/21/2017 7:36 AM EDT
[2017-09-21 08:13] LABS: Bilirubin,Urine Negative (Negative); Clarity,Urine Clear (Clear); Glucose,Urine (UA) Negative (Negative); Leukocyte Esterase,Urine Negative (Negative); Nitrite,Urine Negative (Negative); Specific Gravity,Urine Less/Equal 1.005 (1.002-1.035); Urobilinogen,Urine 0.2 mg/dL (Less than 2)
[2017-09-21 08:29] LABS: Color,Urine Straw (Yellw/Straw)
[2017-09-21 08:44] LABS: WBC,Urine 0-5 /hpf (0-5)
[2017-09-21] MEDS ORDERED: Bisacodyl 10 MG Supp RECTAL PRN (10:14)
[2017-09-21] MEDS ORDERED: Temazepam 15 MG Capsule PO PRN (10:14)
--- NOTE | 2017-09-21 10:32 | P.HP ---
History of Present Illness Service: [facility] hospitalist Primary Care Physician: Ramu Buckner MD Chief Complaint: syncopal episode History of Present Illness: 62-year-old white female with a history of SVT as well as chronic back pain, who presented to the emergency room complaining of a syncopal episode. Patient reports that she began having bad back pain last night. Pain mainly located left lower back, pain radiates down right leg. Patient reports that she was having a hard time getting comfortable last night. Patient woke up this morning and was getting ready when she began to feel lightheaded and dizzy and nauseous. She sat down and then had a syncopal episode for a few minutes. Denies any trauma to the head/neck and after the event had sick to her stomach. She did call 911 EMS arrived at the scene she was a little diaphoretic and pale appearing they could not establish IV she denied any headache or dizziness chest pain consistent with pain to the low back and no fall or trauma. In the emergency room she was found to be hypotensive and does take atenolol for SVT which could be a contributing factor as can the pain from the low back for her syncopal episode we will admit for observation hold the atenolol for now and follow blood pressure will get a carotid Doppler and further plan as case develops. - Diagnosis (1) Syncope (2) SVT (supraventricular tachycardia) (3) Hypotension (4) Back pain Review of Systems All other systems reviewed negative except as [facility] - History History Provided By: Patient - Medical History Medical History: Medical History (Last Updated 09/21/17 @ 06:03 by Sakina Rey) H/O: hysterectomy SVT (supraventricular tachycardia) Chronic back pain - Surgical History Surgical History: Surgical History (Last Reviewed 09/21/17 @ 06:03 by Sakina Rey) H/O rhinoplasty - Tobacco History Second Hand Smoke Exposure: No Smoking Status: Never smoker - Alcohol History How Often Do You Have a Drink Containing Alcohol: Never - Substance Use History Substance History: No History of Abuse - Travel History Recent Travel in the [place] Within the Last 8 Weeks: No Recent Travel Out of the Country Within the Last 8 Weeks: No - Immunization History Tetanus Immunization: >5 Years Hx Influenza Vaccine This Season: No Medications and Allergies Active Medications: Active Medications Bisacodyl (Dulcolax Supp) 10 mg RECTAL DAILY PRN PRN Reason: SEVERE CONSITIPATION Enoxaparin Sodium (Lovenox Inj) 40 mg SQ Q24H ANGEL Lactulose (Lactulose Liq) 30 ml PO DAILY PRN PRN Reason: SEVERE CONSITIPATION Sennosides (Senokot) 17.2 mg PO Q12H PRN PRN Reason: Moderate Constipation Sodium Chloride (Ns Flush) 2 ml IV.FLUSH PRN PRN PRN Reason: FLUSH AFTER USING IV ACCESS Temazepam (Restoril) 15 mg PO HS PRN PRN Reason: INSOMNIA Allergies Allergy/AdvReac Type Severity Reaction Status Date / Time Sulfa (Sulfonamide Allergy Severe Hives Unverified 11/06/16 17:04 Antibiotics) Home Medications Medication Instructions Recorded Confirmed Type atenolol 25 mg PO DAILY 09/21/17 09/21/17 History estradiol [Estrace] 1 mg PO DAILY 09/21/17 09/21/17 History paroxetine HCl [Paxil] 40 mg PO DAILY 09/21/17 09/21/17 History pravastatin 40 mg PO DAILY 09/21/17 09/21/17 History Exam Vital signs: Vital Signs 09/21/17 05:49 09/21/17 06:00 09/21/17 07:04 Temperature 97.5 F L Pulse Rate 65 Respiratory Rate 16 Blood Pressure 96/48 L Pulse Oximetry 98 98 100 09/21/17 07:06 09/21/17 08:07 Temperature Pulse Rate 61 61 Respiratory Rate 18 18 Blood Pressure 105/54 L 115/59 L Pulse Oximetry 100 100 Intake & Output 09/20/17 09/21/17 09/21/17 18:59 06:59 18:59 Intake Total 1999 Output Total 600 / 600 Balance 1400 / 1400 Weight 65.771 kg Intake: IV 1999 NS Inj 1,000 ML @ Wide Open IV. 1999 SIG BOLUS ONE Rx#:[id number] Output: Urine 600 / 600 Narrative: GENERAL: SKIN: Warm and dry. HEAD: Atraumatic. Normocephalic. EYES: Pupils equal and round. No scleral icterus. No injection or drainage. ENT: No nasal bleeding or discharge. Mucous membranes pink and moist. NECK: Trachea midline. No JVD. CARDIOVASCULAR: Regular rate and rhythm. RESPIRATORY: No accessory muscle use. Clear to auscultation. Breath sounds equal bilaterally. GASTROINTESTINAL: Abdomen soft, non-tender, nondistended. Hepatic and splenic margins not palpable. MUSCULOSKELETAL: Extremities without clubbing, cyanosis, or edema. No obvious deformities. NEUROLOGICAL: Awake and alert. No obvious cranial nerve deficits. Motor grossly within normal limits. Five out of 5 muscle strength in the arms and legs. Normal speech. PSYCHIATRIC: Appropriate mood and affect; insight and judgment normal. Results - Labs CBC & Chem 7: 09/21/17 05:55 09/21/17 05:55 Labs: Laboratory Results - last 24 hr 09/21/17 09/21/17 09/21/17 05:55 05:55 05:55 CBC w Diff Auto diff final WBC 8.8 RBC 4.32 Hgb 12.2 Hct 36.9 MCV 85.5 MCH 28.4 MCHC 33.2 RDW 12.2 Plt Count 217 MPV 9.0 Neut % (Auto) 68.2 Lymph % (Auto) 22.7 [place] % (Auto) 7.2 Eos % (Auto) 1.4 Baso % (Auto) 0.5 Neut # (Auto) 6.1 Lymph # (Auto) 2.0 [place] # (Auto) 0.6 Eos # (Auto) 0.1 Baso # (Auto) 0.0 WBC Differential . Differential Comment . PT 10.2 INR 1.0 APTT 25.5 D-Dimer Quant (PE/DVT) 0.57 H Sodium 139 Potassium 3.7 Chloride 104 Carbon Dioxide 28.0 Anion Gap 7 BUN 11 Creatinine 0.77 Estimated GFR 76 L Random Glucose 114 H Calcium 9.0 Magnesium 2.0 Total Bilirubin 0.4 AST 17 ALT 32 Alkaline Phosphatase 84 Troponin I Less than 0.02 L B-Natriuretic Peptide Total Protein 6.6 Albumin 3.6 Ur Collection Type Urine Color Urine Clarity Urine pH Ur Specific [place] Urine Protein Urine Glucose (UA) Urine Ketones Urine Occult Blood Urine Nitrate Urine Bilirubin Urine Urobilinogen Ur Leukocyte Esterase Urine WBC Micro UA Comment Urine Culture Comments Blood Type Blood Type Recheck Antibody Screen 09/21/17 09/21/17 09/21/17 05:55 05:55 08:05 CBC w Diff WBC RBC Hgb Hct MCV MCH MCHC RDW Plt Count MPV Neut % (Auto) Lymph % (Auto) [place] % (Auto) Eos % (Auto) Baso % (Auto) Neut # (Auto) Lymph # (Auto) [place] # (Auto) Eos # (Auto) Baso # (Auto) WBC Differential Differential Comment PT INR APTT D-Dimer Quant (PE/DVT) Sodium Potassium Chloride Carbon Dioxide Anion Gap BUN Creatinine Estimated GFR Random Glucose Calcium Magnesium Total Bilirubin AST ALT Alkaline Phosphatase Troponin I B-Natriuretic Peptide 33 Total Protein Albumin Ur Collection Type Clean catch Urine Color Straw Urine Clarity Clear Urine pH 8.0 Ur Specific [place] Less/equal 1.005 Urine Protein Negative Urine Glucose (UA) Negative Urine Ketones Negative Urine Occult Blood Trace Urine Nitrate Negative Urine Bilirubin Negative Urine Urobilinogen 0.2 Ur Leukocyte Esterase Negative Urine WBC 0-5 Micro UA Comment Culture not ind Urine Culture Comments Culture not ind Blood Type O Positive Blood Type Recheck Required Antibody Screen Negative - Imaging Impressions Thoracic Aorta CT 09/21/17 05:56 CONCLUSION: 1. No evidence of aortic aneurysm or dissection. 2. Bilateral thyroid nodules measuring up to 1.6 cm. Recommend further evaluation with thyroid ultrasound if this has not been previously performed. 3. Left hepatic lobe cavernous hemangioma. Additional smaller lesions with features suggestive of hemangiomas. Chest X-Ray 09/21/17 05:57 CONCLUSION: No active disease. Caprini VTE Risk Assessment Caprini VTE Risk Assessment: Moderate/High Risk (score >= 2) Caprini Risk Assessment Model: Point Value = 1 Point Value = 2 Point Value = 3 Point Value = 5 Age 41-60 Minor surgery BMI > 25 kg/m2 Swollen legs Varicose veins or History of unexplained or recurrent spontaneous Oral contraceptives or hormone replacement Sepsis (< 1 month) Serious lung disease, including pneumonia (< 1 month) Abnormal pulmonary function Acute myocardial infarction Congestive heart failure (< 1 month) History of inflammatory bowel disease Medical patient at bed rest Age 61-74 Arthroscopic surgery Major open surgery (> 45 min) Laparoscopic surgery (> 45 min) Malignancy Confined to bed (> 72 hours) Immobilizing plaster cast Central venous access Age >= 75 History of VTE Family history of VTE Factor V Leiden Prothrombin [id number] Lupus anticoagulant Anticardiolipin antibodies Elevated serum homocysteine Heparin-induced thrombocytopenia Other congenital or acquired thrombophilia Stroke (< 1 month) Elective arthroplasty Hip, pelvis, or leg fracture Acute spinal cord injury (< 1 month) Prophylaxis Regimen: Total Risk Factor Score Risk Level Prophylaxis Regimen 0-1 Low Early ambulation 2 Moderate Order ONE of the following: *Sequential Compression Device (SCD) *Heparin 5000 units SQ BID 3-4 Higher Order ONE of the following medications: *Heparin 5000 units SQ TID *Enoxaparin/Lovenox 40 mg SQ daily (WT < 150 kg, CrCl > 30 mL/min) *Enoxaparin/Lovenox 30 mg SQ daily (WT < 150 kg, CrCl > 10-29 mL/min) *Enoxaparin/Lovenox 30 mg SQ BID (WT < 150 kg, CrCl > 30 mL/min) AND/OR *Sequential Compression Device (SCD) 5 or more Highest Order ONE of the following medications: *Heparin 5000 units SQ TID (Preferred with Epidurals) *Enoxaparin/Lovenox 40 mg SQ daily (WT < 150 kg, CrCl > 30 mL/min) *Enoxaparin/Lovenox 30 mg SQ daily (WT < 150 kg, CrCl > 10-29 mL/min) *Enoxaparin/Lovenox 30 mg SQ BID (WT < 150 kg, CrCl > 30 mL/min) AND *Sequential Compression Device (SCD) Assessment and Plan - Assessment (1) Syncope Code(s): R55 - Syncope and collapse Status: Acute Plan: admit observe follow blood pressure hold atenolol (2) SVT (supraventricular tachycardia) Code(s): I47.1 - Supraventricular tachycardia Status: Acute Plan: place on monitor hold atenolol (3) Hypotension Code(s): I95.9 - Hypotension, unspecified Status: Acute Plan: hold BP already in er given IV fluid (4) Back pain Code(s): M54.9 - Dorsalgia, unspecified Status: Acute Plan: may use prn medication for now - Plan further plan as case develops Code Status: full Discussed Condition With: patient (4) Back pain Qualifiers: Chronicity: chronic
[2017-09-21] MEDS: Enoxaparin Inj 40 MG/0.4 ML Syringe SQ SCH (11:46)
--- NOTE | 2017-09-21 15:08 | MR ---
EXAM DATE: 09/21/2017 2:43 PM EDT AGE/SEX: 62 years / Female INDICATIONS: . Left sided low back pain. CLINICAL DATA: This is the patient's initial encounter. Patient reports that signs and symptoms have been present for 2 days and indicates a pain score of 7/10. MEDICAL/SURGICAL HISTORY: None. Tonsillectomy. Hysterectomy. COMPARISON: No prior exams available for comparison. TECHNIQUE: Multiplanar, multisequence MRI examination of the lumbar spine was performed without and with 13 ml Omniscan (gadodiamide) contrast as a single exam dose. FINDINGS: ALIGNMENT: Very slight anterolisthesis is noted of L4 on L5. Vertebral bodies are otherwise satisfact orily aligned without evidence of listhesis. FACET AND OSSEOUS STRUCTURES: Vertebral body height is well-maintained. There is no evidence of acut e fracture, bone marrow edema or destructive changes. Significant facet arthropathy is identified at L4-5. There are degenerative changes in both joints bu t worse on the left. Mild bilateral facet arthropathy is evident at L5-S1. INTERVERTEBRAL DISC SPACES: The L1-2, L2-3 and L3-4 vertebral disc are unremarkable. The L4-5 intervertebral disc demonstrates some mild marginal bulging but no evidence of disc herniati on, foraminal encroachment or spinal stenosis. The L5-S1 disc demonstrates moderate to severe degenerative disease with disc space narrowing, reacti ve endplate changes and mild marginal spurring. There is no evidence of acute disc herniation, forami nal encroachment or spinal stenosis. NEUROLOGIC STRUCTURES: At the L2 level to the left of midline there is a 7.5 mm enhancing intradural nodule within the nerve roots of the cauda equina. No other enhancing epidural or intradural abnormalities are noted. Conus medullaris is normally situa holly. CONCLUSION: 1. 7.5 mm enhancing intradural nodule at the L2 level within the cauda equina which may represent a small neurofibroma, ependymoma or para ganglioma. Malignant nerve root sheath tumor cannot be exclude d. 2. Radiographic and facet arthropathy at L4-5 worse on the left causing mild anterolisthesis. 3. Mild disc bulge at L4-5. 4. Moderate to severe degenerative disc disease at L5-S1. 5. No evidence of acute disc herniation, acute bony abnormality, neural foraminal encroachment or sp inal stenosis. Electronically signed by: Cong Gamboa MD 09/21/2017 3:07 PM EDT
--- NOTE | 2017-09-21 16:01 | US ---
EXAM DATE: 09/21/2017 3:18 PM EDT AGE/SEX: 62 years / Female INDICATIONS: Syncope. CLINICAL DATA: This is the patient's initial encounter. Patient reports that signs and symptoms have been present for 1 day and indicates a pain score of 10/10. MEDICAL/SURGICAL HISTORY: . SVT. Chronic back pain. . Rhinoplasty. COMPARISON: No prior exams available for comparison. VELOCITY PARAMETERS: ICA/CCA Ratio: Right 1.2 , Left 0.9 ICA: Right 118 cm/sec, Left 104 cm/sec CCA: Right 99 cm/sec, Left 115 cm/sec ECA: Right 80 cm/sec, Left 89 cm/sec Vertebral: Right 69 cm/sec antegrade, Left 70 cm/sec antegrade FINDINGS: Right Carotid: No significant plaque is visualized.The waveforms are within normal limits. Left Carotid: No significant plaque is visualized. The waveforms are within normal limits. Other: None. CONCLUSION: Patent carotid arteries bilaterally. Antegrade flow involving both vertebral arteries. Electronically signed by: Andrade Lou MD 09/21/2017 4:00 PM EDT
[2017-09-21] MEDS ORDERED: Gadodiamide PF Inj 287 MG/ML 5 ML Syringe (for RAD MRI) IVCONTRAST ONE (16:36)
[2017-09-21] MEDS ORDERED: Morphine Inj 4 MG/ML Vial IV.SIG ONE (17:30)
--- NOTE | 2017-09-21 17:38 | ECHRPT ---
Indication: SHORTNESS OF BREATH CONCLUSIONS Normal left ventricular size. Wall thickness is normal. The left ventricular systolic function is grossly normal on limited imaging. EF@55% BP: / HR: Rhythm: Sinus MEASUREMENTS (Male / Female) Normal Values Technical Quality:Fair 2D ECHO LV Diastolic Diameter PLAX 5.1 cm 4.2 - 5.9 / 3.9 - 5.3 cm LV Systolic Diameter PLAX 3.1 cm IVS Diastolic Thickness 0.7 cm 0.6 - 1.0 / 0.6 - 0.9 cm LVPW Diastolic Thickness 0.7 cm 0.6 - 1.0 / 0.6 - 0.9 cm LV Relative Wall Thickness 0.3 RV Internal Dim ED PLAX 2.2 cm LVOT Diameter 2.0 cm Aortic Root Diameter 3.0 cm LA Systolic Diameter LX 2.4 cm 3.0 - 4.0 / 2.7 - 3.8 cm M-MODE AV Cusp Separation MM 2.2 cm DOPPLER AV Peak Velocity 112.0 cm/s AV Peak Gradient 5.0 mmHg AV Mean Gradient 3.0 mmHg AV Velocity Time Integral 25.0 cm LVOT Peak Velocity 64.7 cm/s LVOT Peak Gradient 1.7 mmHg LVOT Velocity Time Integral 13.2 cm AV Area Cont Eq vti 1.7 cm AV Area Cont Eq pk 1.8 cm Mitral E Point Velocity 100.0 cm/s Mitral A Point Velocity 89.8 cm/s Mitral E to A Ratio 1.1 LV E' Lateral Velocity 8.6 cm/s Mitral E to LV E' Lateral Ratio 11.7 LV E' Septal Velocity 7.2 cm/s Mitral E to LV E' Septal Ratio 13.9 TR Peak Velocity 214.0 cm/s TR Peak Gradient 18.3 mmHg Right Atrial Pressure 10.0 mmHg Pulmonary Artery Systolic Pressu 28.3 mmHg Right Ventricular Systolic Press 28.3 mmHg PV Peak Velocity 60.2 cm/s PV Peak Gradient 1.4 mmHg FINDINGS LEFT VENTRICLE Normal left ventricular size. Wall thickness is normal. The left ventricular systolic function is grossly normal on limited imaging. RIGHT VENTRICLE Normal right ventricular size and systolic function. LEFT ATRIUM The left atrial size is normal. RIGHT ATRIUM The right atrial size is normal. ATRIAL SEPTUM No atrial level shunt is demonstrated by color flow Doppler interrogation. AORTA The aortic root and proximal ascending aorta are not well visualized. MITRAL VALVE The mitral valve is not well visualized. AORTIC VALVE Trileaflet aortic valve. No aortic valve stenosis or regurgitation. TRICUSPID VALVE Structurally normal tricuspid valve. No tricuspid valve stenosis or regurgitation. PULMONARY VALVE No pulmonary valve regurgitation or stenosis. VESSELS The inferior vena cava is normal in size. PERICARDIUM No pericardial effusion. Johnny Guidry MD, FACC, [facility] [place] (Electronically Signed) Final Date:21 September 2017 17:37
--- NOTE | 2017-09-21 18:40 | ECG ---
Date Performed: 09/21/2017 Time Performed: 05:49:55 PTAGE: 62 years EKG: SINUS BRADYCARDIA LOW QRS VOLTAGE IN PRECORDIAL LEADS BORDERLINE ECG NO PREVIOUS TRACING DOCTOR: John Reynaga Interpretating Date/Time 09/21/2017 18:38:20
[2017-09-21] MEDS: Morphine Inj 4 MG/ML Vial IV.PUSH PRN (23:14)
[2017-09-22] MEDS ORDERED: Estradiol 1 MG Tablet PO SCH (09:00)
--- NOTE | 2017-09-22 11:29 | P.CONNS ---
History of Present Illness Service: neurosurgery Consult date: 09/22/17 Requesting Physician: Michael Hester Reason for Consult: mass Primary Care Provider: Ramu Buckner MD Chief Complaint: syncopal episode History of Present Illness: This is a 62-year-old white female with a history of SVT, chronic back pain, who presented to the emergency room complaining of a syncopal episode. Patient reports that she began having bad back pain last night. Denies any trauma or fall. Her pain mainly located left lower back, pain radiates down right leg. She reports that she was having difficulty getting comfortable last night. Patient woke up this morning and was getting ready when she began to feel lightheaded and dizzy and nauseous. She sat down and then had a syncopal episode for a few minutes. Denies any trauma to the head/ neck and after the event had sick to her stomach. She did call 911 EMS arrived at the scene she was a little diaphoretic and pale appearing they could not establish IV she denied any headache or dizziness chest pain consistent with pain to the low back and no fall or trauma. In the emergency room she was found to be hypotensive and does take atenolol for SVT which could be a contributing factor as can the pain from the low back for her syncopal episode we will admit for observation hold the atenolol for now and follow blood pressure will get a carotid Doppler and further plan as case develops. [facility] - History History Provided By: Patient - Medical History Medical History: Medical History (Last Reviewed 09/21/17 @ 10:40 by Diane Mathews RN) H/O: hysterectomy SVT (supraventricular tachycardia) Chronic back pain - Surgical History Surgical History: Surgical History (Last Reviewed 09/21/17 @ 10:40 by Diane Mathews RN) H/O rhinoplasty - Tobacco History Second Hand Smoke Exposure: No Smoking Status: Never smoker - Alcohol History How Often Do You Have a Drink Containing Alcohol: Never - Substance Use History Substance History: No History of Abuse - Travel History Recent Travel in the [place] Within the Last 8 Weeks: No Recent Travel Out of the Country Within the Last 8 Weeks: No - Immunization History Tetanus Immunization: Unsure Hx Influenza Vaccine This Season: No Medications and Allergies Active Medications: Active Medications Bisacodyl (Dulcolax Supp) 10 mg RECTAL DAILY PRN PRN Reason: SEVERE CONSITIPATION Digoxin (Lanoxin) 250 mcg PO HS [facility] Enoxaparin Sodium (Lovenox Inj) 40 mg SQ Q24H [facility] Last Admin: 09/21/17 11:46 Dose: 40 mg Estradiol (Estrace) 1 mg PO DAILY [facility] Last Admin: 09/22/17 08:54 Dose: 1 mg Lactulose (Lactulose Liq) 30 ml PO DAILY PRN PRN Reason: SEVERE CONSITIPATION Morphine Sulfate (Morphine Inj) 4 mg IV.PUSH Q4H PRN PRN Reason: PAIN SCALE 6 TO 10 Last Admin: 09/21/17 23:14 Dose: 4 mg Paroxetine HCl (Paxil) 40 mg PO DAILY [facility] Last Admin: 09/22/17 08:50 Dose: 40 mg Pravastatin Sodium (Pravachol) 40 mg PO DAILY [facility] Last Admin: 09/22/17 08:50 Dose: 40 mg Sennosides (Senokot) 17.2 mg PO Q12H PRN PRN Reason: Moderate Constipation Sodium Chloride (Ns Flush) 2 ml IV.FLUSH PRN PRN PRN Reason: FLUSH AFTER USING IV ACCESS Temazepam (Restoril) 15 mg PO HS PRN PRN Reason: INSOMNIA Allergies Allergy/AdvReac Type Severity Reaction Status Date / Time Sulfa (Sulfonamide Allergy Severe Hives Verified 09/21/17 10:40 Antibiotics) Home Medications Medication Instructions Recorded Confirmed Type atenolol 25 mg PO DAILY 09/21/17 09/21/17 History digoxin [Lanoxin] 0.25 mg PO DAILY 09/21/17 09/21/17 History estradiol [Estrace] 1 mg PO DAILY 09/21/17 09/21/17 History paroxetine HCl [Paxil] 40 mg PO DAILY 09/21/17 09/21/17 History pravastatin 40 mg PO DAILY 09/21/17 09/21/17 History Exam Vital signs: Vital Signs 09/21/17 16:00 09/21/17 20:00 09/22/17 00:00 Temperature 97.5 F L 97.2 F L 97.9 F Pulse Rate 59 L 57 L 54 L Respiratory Rate 16 18 18 Blood Pressure 106/56 L 100/50 L 154/59 H Pulse Oximetry 97 97 97 09/22/17 04:00 09/22/17 08:00 Temperature 97.7 F 97.4 F L Pulse Rate 58 L 53 L Respiratory Rate 18 16 Blood Pressure 101/55 L 103/51 L Pulse Oximetry 97 97 Intake & Output 09/21/17 09/22/17 09/22/17 18:59 06:59 18:59 Intake Total 2360 / 2360 600 / 600 Output Total 600 / 600 Balance 1760 / 1760 600 / 600 Weight 66.1 kg Intake: IV 1999 NS Inj 1,000 ML @ Wide Open IV. 1999 SIG BOLUS ONE Rx#:[id number] Oral 360 / 360 600 / 600 Output: Urine 600 / 600 Other: # Voids 3 3 # Bowel Movements 0 1 Narrative: The patient is alert, awake. Comfortable, in no acute distress. Speech is fluent. Cranial nerve examination: pupils to be equal, round and reactive to light. Extra-ocular movements are intact. Facial motor and sensory function are normal and symmetrical. Gross hearing appears intact. Sternocleidomastoid and trapezius muscles are symmetrical. Other cranial nerves are intact. Neck is soft and supple with a good range of motion without pain. Muscle strength is normal in all muscle groups of both upper and lower extremities. Sensory examination is intact to light touch and pin prick in both the upper and lower extremities. Deep tendon reflexes are symmetrical in both upper and lower extremities. There is a bilateral plantar flexion response. Cerebellar examination is unremarkable, without deficits. Lungs are clear Heart regular rhythm is regular rate Skin warm and dry Results - Laboratory Findings CBC and BMP: 09/21/17 05:55 09/21/17 05:55 Abnormal lab findings: Abnormal Labs 09/21/17 09/21/17 05:55 05:55 D-Dimer Quant (PE/DVT) 0.57 H Estimated GFR 76 L Random Glucose 114 H Troponin I Less than 0.02 L Assessment and Plan - Plan - Assessment (1) Syncope Code(s): R55 - Syncope and collapse Status: Acute Plan: admit observe follow blood pressure hold atenolol (2) SVT (supraventricular tachycardia) Code(s): I47.1 - Supraventricular tachycardia Status: Acute Plan: place on monitor hold atenolol (3) Hypotension Code(s): I95.9 - Hypotension, unspecified Status: Acute Plan: hold BP already in er given IV fluid (4) Back pain Code(s): M54.9 - Dorsalgia, unspecified Status: Acute Plan: may use prn medication for now I reviewed her clinical and radiological studies including Carotid Doppler Study 09/21/17 00:00 CONCLUSION: Patent carotid arteries bilaterally. Antegrade flow involving both vertebral arteries. Lumbar Spine MRI 09/21/17 00:00 CONCLUSION: 1. 7.5 mm enhancing intradural nodule at the L2 level within the cauda equina which may represent a small neurofibroma, ependymoma or para ganglioma. Malignant nerve root sheath tumor cannot be excluded. 2. Radiographic and facet arthropathy at L4-5 worse on the left causing mild anterolisthesis. 3. Mild disc bulge at L4-5. 4. Moderate to severe degenerative disc disease at L5-S1. 5. No evidence of acute disc herniation, acute bony abnormality, neural foraminal encroachment or spinal stenosis. Thoracic Aorta CT 09/21/17 05:56 CONCLUSION: 1. No evidence of aortic aneurysm or dissection. 2. Bilateral thyroid nodules measuring up to 1.6 cm. Recommend further evaluation with thyroid ultrasound if this has not been previously performed. 3. Left hepatic lobe cavernous hemangioma. Additional smaller lesions with features suggestive of hemangiomas. Chest X-Ray 09/21/17 05:57 CONCLUSION: No active disease. Neuro: neuro checks in a serial fashion. I discussed with her the alternatives of treatment. Recommend nonoperative treatment for now. 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 Recommenjd follow up MRI in 6 months Lumbar spiondylosis with chronic low back pain. Refer to pain specialist as outpatient Syncope. recommend full workup, echocardiogram, carotid duplex, EEG, neurology consultation. I will defer workup to medical doctor Pulmonary: aggressive pulmonary toilette, nasotracheal suction, and breathing treatments with nebulizers. Daily PT and OT Renal: Continue to monitor closely urine output, BUN and creatinine Endocrine: Continue to Monitor serial Acu checks and SSI as needed in detail ID continue to monitor for signs of infection Continue Protonix for stress ulcer prophylaxis Continue Elgin hose and SCD's for DVT prophylaxis Caprini VTE Risk Assessment Caprini VTE Risk Assessment: Moderate/High Risk (score >= 2) Caprini Risk Assessment Model: Point Value = 1 Point Value = 2 Point Value = 3 Point Value = 5 Age 41-60 Minor surgery BMI > 25 kg/m2 Swollen legs Varicose veins or History of unexplained or recurrent spontaneous Oral contraceptives or hormone replacement Sepsis (< 1 month) Serious lung disease, including pneumonia (< 1 month) Abnormal pulmonary function Acute myocardial infarction Congestive heart failure (< 1 month) History of inflammatory bowel disease Medical patient at bed rest Age 61-74 Arthroscopic surgery Major open surgery (> 45 min) Laparoscopic surgery (> 45 min) Malignancy Confined to bed (> 72 hours) Immobilizing plaster cast Central venous access Age >= 75 History of VTE Family history of VTE Factor V Leiden Prothrombin [id number] Lupus anticoagulant Anticardiolipin antibodies Elevated serum homocysteine Heparin-induced thrombocytopenia Other congenital or acquired thrombophilia Stroke (< 1 month) Elective arthroplasty Hip, pelvis, or leg fracture Acute spinal cord injury (< 1 month) Prophylaxis Regimen: Total Risk Factor Score Risk Level Prophylaxis Regimen 0-1 Low Early ambulation 2 Moderate Order ONE of the following: *Sequential Compression Device (SCD) *Heparin 5000 units SQ BID 3-4 Higher Order ONE of the following medications: *Heparin 5000 units SQ TID *Enoxaparin/Lovenox 40 mg SQ daily (WT < 150 kg, CrCl > 30 mL/min) *Enoxaparin/Lovenox 30 mg SQ daily (WT < 150 kg, CrCl > 10-29 mL/min) *Enoxaparin/Lovenox 30 mg SQ BID (WT < 150 kg, CrCl > 30 mL/min) AND/OR *Sequential Compression Device (SCD) 5 or more Highest Order ONE of the following medications: *Heparin 5000 units SQ TID (Preferred with Epidurals) *Enoxaparin/Lovenox 40 mg SQ daily (WT < 150 kg, CrCl > 30 mL/min) *Enoxaparin/Lovenox 30 mg SQ daily (WT < 150 kg, CrCl > 10-29 mL/min) *Enoxaparin/Lovenox 30 mg SQ BID (WT < 150 kg, CrCl > 30 mL/min) AND *Sequential Compression Device (SCD) Further recommendations will be provided depending on the patient's clinical evaluation and follow up studies.
[2017-09-22] MEDS: Enoxaparin Inj 40 MG/0.4 ML Syringe SQ SCH (11:51)
[2017-09-22] MEDS: Morphine Inj 4 MG/ML Vial IV.PUSH PRN (11:52)
--- NOTE | 2017-09-22 15:14 | P.PNIM ---
Subjective Interval history: Patient is a pleasant 62-year-old female admitted through the [facility] ER with complaint of syncope. Patient transferred to [facility] for evaluation by neurosurgery due to abnormal findings on lumbar MRI. Patient has had no further syncopal episodes since admission. Patient denies dizziness. Patient has been ambulating in her room without difficulty. Patient is requesting discharge to home without home health care or home physical therapy. Physical Exam Vital signs: Vital Signs 09/21/17 16:00 09/21/17 20:00 09/22/17 00:00 Temperature 97.5 F L 97.2 F L 97.9 F Pulse Rate 59 L 57 L 54 L Respiratory Rate 16 18 18 Blood Pressure 106/56 L 100/50 L 154/59 H Pulse Oximetry 97 97 97 Narrative: GENERAL: This is a well-nourished, well-developed patient, in no apparent distress. CARDIOVASCULAR: Regular rate and rhythm without murmurs, gallops, or rubs. RESPIRATORY: Clear to auscultation. Breath sounds equal bilaterally. No wheezes , rales, or rhonchi. GASTROINTESTINAL: Abdomen soft, non-tender, nondistended. Normal active bowel sounds MUSCULOSKELETAL: Extremities without clubbing, cyanosis, or edema. NEURO: Alert & Oriented x4 to person, place, time, situation. Moves all ext x4 Results - Labs CBC & Chem 7: 09/21/17 05:55 09/21/17 05:55 - Imaging Impressions Carotid Doppler Study 09/21/17 00:00 CONCLUSION: Patent carotid arteries bilaterally. Antegrade flow involving both vertebral arteries. Lumbar Spine MRI 09/21/17 00:00 CONCLUSION: 1. 7.5 mm enhancing intradural nodule at the L2 level within the cauda equina which may represent a small neurofibroma, ependymoma or para ganglioma. Malignant nerve root sheath tumor cannot be excluded. 2. Radiographic and facet arthropathy at L4-5 worse on the left causing mild anterolisthesis. 3. Mild disc bulge at L4-5. 4. Moderate to severe degenerative disc disease at L5-S1. 5. No evidence of acute disc herniation, acute bony abnormality, neural foraminal encroachment or spinal stenosis. Assessment and Plan - Assessment (1) Syncope Code(s): R55 - Syncope and collapse Status: Acute Plan: SYNCOPE Hypotension h/o SVT - Carotid US (09/04) --> no hemodynamically significant stenosis - EKG (09/21) --> no arrhythmia, no acute ischemic changes - syncope likely d/t hypotension - obtain TSH, free T4, b12, folate, RPR prior to discharge. Results can be reviewed by PCP at 1 week hospital f/u appointment - continue to hold atenolol - obtain outpt event monitor with [facility] - discharge to home today - f/u with PCP, Dr. Ramu Buckner in 1 week LBP MRI lumbar spine - intradural nodule at L2 level - appreciate input from Dr. Vallejo - Case d/w Dr. Vallejo (09/22) - MRI findings unlikely to represent malignancy - Dr. Vallejo would like pt to f/u with him in 1 year & f/u lumbar MRI in one year. - pain relieved with IV morphine - pt feels that hospital bed is contributing to LBP - Pt will try naprosyn at home - pt requesting narcotic - Pt NOT found on eforce - ultram 50mg q6h prn pain, #12, no RF (2) SVT (supraventricular tachycardia) Code(s): I47.1 - Supraventricular tachycardia Status: Acute (3) Hypotension Code(s): I95.9 - Hypotension, unspecified Status: Acute (4) Back pain Code(s): M54.9 - Dorsalgia, unspecified Status: Acute (4) Back pain Qualifiers: Chronicity: chronic
[2017-09-22 18:32] LABS: Free T4 (Free Thyroxine) 1.17 ng/dL (0.76-1.46); Vitamin B12 882 pg/mL (193-986)
[2017-09-22] MEDS ORDERED: Digoxin 125 MCG Tablet PO SCH (21:00)
== END 2017-09-22 19:00 | disposition home or self-care (01) ==
LOC: PHEDA 05:47 → PHED 05:47 → N04 05:47 → PH3 10:07 → N04 09-22 00:01
PROVIDERS: ADMIT Hospitalist; ATTEND Hospitalist
DX: I47.1 Supraventricular tachycardia; D18.03 Hemangioma of intra-abdominal structures; M54.9 Dorsalgia, unspecified; M46.96 Unspecified inflammatory spondylopathy, lumbar region; Z86.718 Personal history of other venous thrombosis and embolism; I95.9 Hypotension, unspecified; R55 Syncope and collapse; M51.37 Other intervertebral disc degeneration, lumbosacral region; E04.2 Nontoxic multinodular goiter; G89.29 Other chronic pain; Z79.899 Other long term (current) drug therapy